=== PATIENT | female | born 1970 | race Hispanic/Latino ===

== ENCOUNTER 2018-01-17 11:46 | Emergency (ER) | payer BC, SELFPAY ==
[2018-01-17] MEDS ORDERED: Dexamethasone 4 mg/ml Vial ONE (12:27)
[2018-01-17] MEDS ORDERED: Ibuprofen 800 MG TAB ONE (12:27)
[2018-01-17] MEDS ORDERED: Ondansetron ODT 4 MG TAB ONE (12:31)
== END 2018-01-17 13:26 | disposition home or self-care (01) ==
LOC: ERS 11:46
DX: J02.9 Acute pharyngitis, unspecified (principal); J04.0 Acute laryngitis; Z86.73 Personal history of transient ischemic attack (TIA), and cerebral infarction without residual deficits
CPT/HCPCS: 87081; 87430; 99283; J1100; Q0162

== ENCOUNTER 2018-05-11 08:11 | Emergency (ER) | payer OTHER, SELFPAY ==
[2018-05-11] MEDS ORDERED: Ibuprofen 200 MG TAB ONE (08:59)
[2018-05-11] MEDS ORDERED: HYDROcodone/Acetaminophen 10/325 mg Tablet ONE (09:28)
--- NOTE | 2018-05-11 09:29 | RAD ---
2 VIEWS CHEST: Date: 05/11/18 COMPARISON: 10/15/15. HISTORY: Chest pain. FINDINGS: There are multiple stable postoperative clips in the right upper quadrant, as well as overlying bilat eral chest wall regions and right axilla. No pneumothorax, pleural fluid, focal consolidation, or joe eolar edema. IMPRESSION: Stable appearance of the chest. No focal consolidation or alveolar edema. POS: [id number]
== END 2018-05-11 09:33 | disposition home or self-care (01) ==
LOC: ERS 08:11
DX: N64.4 Mastodynia (principal); Z86.73 Personal history of transient ischemic attack (TIA), and cerebral infarction without residual deficits; Z79.899 Other long term (current) drug therapy
CPT/HCPCS: 71046

== ENCOUNTER 2019-01-04 11:05 | Emergency (ER) | payer OTHER, SELFPAY | END 2019-01-04 11:55 | disposition home or self-care (01) | LOC: ERS 11:05 | DX: M54.5 Low back pain (principal); F32.9 Major depressive disorder, single episode, unspecified; F41.9 Anxiety disorder, unspecified; Z86.73 Personal history of transient ischemic attack (TIA), and cerebral infarction without residual deficits; Z85.3 Personal history of malignant neoplasm of breast; Z79.899 Other long term (current) drug therapy | CPT/HCPCS: 99283 ==

== ENCOUNTER 2019-04-19 17:11 | Emergency (ER) | payer SELFPAY ==
[~2019-04-19 17:11] MED LIST: ISOVUE-370 76%-LOCM 1 ML ONE
[2019-04-19 17:54] LABS: #Eosinphils 0.2 thou/uL (0.0-0.7); #Lymphocytes 1.8 thou/uL (1.20-3.40); #Monocytes 0.6 thou/uL (0.11-0.59); #Neutrophils 4.6 thou/uL (1.40-6.50); %Basophils 0.6 % (0.0-1.0); %Eosinophils 2.2 % (0.0-10.0); %Lymphocytes 25.6 % (21.0-51.0); %Monocytes 8.3 % (0.0-10.0); %Neutrophils 63.3 % (42.0-75.0); Hemoglobin 13.4 g/dL (12.0-16.0); Mean Corpuscular HGB CONC 32.9 g/dL (32.0-36.0); Mean Corpuscular Hemoglobin 32.8 pg (27.0-31.0); Mean Corpuscular Volume 99.7 fL (78.0-98.0); Mean Platelet Volume 8.6 fL (7.4-10.4); Platelet Count 272 thou/uL (130-400); RBC Distribution Width 12.3 % (11.5-14.5); Red Blood Cell (RBC) Count 4.07 mill/uL (4.20-5.40); White Blood Cell (WBC) Count 7.2 thou/uL (4.8-10.8)
[2019-04-19 18:00] LABS: Bilirubin Negative (Negative); Blood, Urine Negative (Negative); Clarity CLEAR (Clear); Glucose, Urine (Dipstick) Negative (Negative); Leukocyte Negative (Negative); Nitrite Negative (Negative); Protein, Urine (Dipstick) Negative (Neg-Trace); Specific Gravity, Urine 1.007 (1.002-1.036); Urobilinogen 0.2 mg/dL (0.2-1.0)
[2019-04-19 18:14] LABS: ALT (SGPT) 10 U/L (8-55); AST (SGOT) 15 U/L (5-34); Albumin 4.3 g/dL (3.5-5.0); Alkaline Phosphatase 117 U/L (40-150); Anion Gap 10 mmol/L (10-20); BUN (Urea Nitrogen) 8 mg/dL (7.0-18.7); Bilirubin, Total 0.2 mg/dL (0.2-1.2); Calc. Creatinine Clearance 0 mL/min (70-130); Calcium 9.4 mg/dL (7.8-10.44); Carbon Dioxide 27 mmol/L (22-29); Chloride 106 mmol/L (98-107); Estimated GFR-MDRD Greater than 90; Globulin 2.9 g/dL (2.4-3.5); Glucose 93 mg/dL (70-105); Potassium 3.6 mmol/L (3.5-5.1); Protein, Total 7.2 g/dL (6.0-8.3); Sodium 139 mmol/L (136-145)
[2019-04-19] MEDS ORDERED: Ondansetron PF 4 MG/2 ML Vial ONE (18:44)
[2019-04-19] MEDS ORDERED: Pantoprazole 40 MG VIAL ONE (18:44)
[2019-04-19] MEDS ORDERED: Metoclopramide HCl 10 MG/2 ML VIAL ONE (18:44)
--- NOTE | 2019-04-19 19:13 | CT ---
CT abdomen and pelvis with IV contrast HISTORY: Abdominal pain. Nausea. COMPARISON: 12/09/2016. FINDINGS: Lung bases are clear. Right breast prosthesis partially visualized. Gallbladder surgically absent. Solid organs are intact. Nonspecific lymph nodes throughout the abdomen and pelvis. Urinary bladder is unremarkable. Postoperative changes of the bowel and anterior abdominal wall. No evidence of inflammation or obstruction. IMPRESSION: Chronic-type findings are stable. No acute abnormalities are demonstrated.
== END 2019-04-19 20:49 | disposition home or self-care (01) ==
LOC: ERS 17:11
DX: R11.2 Nausea with vomiting, unspecified (principal); F41.9 Anxiety disorder, unspecified; F32.9 Major depressive disorder, single episode, unspecified; Z86.73 Personal history of transient ischemic attack (TIA), and cerebral infarction without residual deficits; Z79.899 Other long term (current) drug therapy; Z79.1 Long term (current) use of non-steroidal anti-inflammatories (NSAID)
CPT/HCPCS: 36415; 74177; 80053; 81003; 83690; 84484; 85025; 93005; 96361; 96372; 96374; 96375; C9113; J0500; J2405; J2765; Q9966

== ENCOUNTER 2019-05-24 10:57 | Outpatient (CLI) | payer OTHER ==
--- NOTE | 2019-05-24 11:18 | RAD ---
EXAM: 2 views of the right humerus HISTORY: right arm pain COMPARISON: None FINDINGS: 2 views of the right humerus shows no evidence of acute fracture or dislocation. No degener ative changes are seen. No soft tissue swelling is present. Surgical clips are seen in the right axilla. IMPRESSION: No evidence of acute osseous abnormality.
--- NOTE | 2019-05-24 11:20 | RAD ---
LUMBAR SPINE 2 VIEWS: Date: 05/24/19 HISTORY: Back pain radiating down left leg. FINDINGS/IMPRESSION: Mild degenerative changes are seen. No fracture, subluxation, or bony destruction identified. POS: [facility]
== END 2019-05-24 10:58 | disposition home or self-care (01) ==
LOC: BICRAD 10:57
PROVIDERS: ATTEND Internal Medicine
DX: Z02.71 Encounter for disability determination (principal); M47.816 Spondylosis without myelopathy or radiculopathy, lumbar region
CPT/HCPCS: 72100

== ENCOUNTER 2021-02-24 16:55 | Emergency (ER) | payer SELFPAY ==
[2021-02-24] MEDS ORDERED: Acetaminophen 500 MG TAB ONE (17:32)
[2021-02-24] MEDS ORDERED: Ketorolac Tromethamine 30 MG/ML VIAL ONE (17:32)
== END 2021-02-24 20:13 | disposition home or self-care (01) ==
LOC: ERS 16:55
DX: R51.9 Headache, unspecified (principal); M79.10 Myalgia, unspecified site; R03.0 Elevated blood-pressure reading, without diagnosis of hypertension; R00.0 Tachycardia, unspecified; T50.B95A Adverse effect of other viral vaccines, initial encounter; Z85.3 Personal history of malignant neoplasm of breast; Z86.73 Personal history of transient ischemic attack (TIA), and cerebral infarction without residual deficits
CPT/HCPCS: 93005; 96374; J1885

== ENCOUNTER 2021-10-23 13:25 | Emergency (ER) | payer SELFPAY ==
[~2021-10-23 13:25] MED LIST changes: -ISOVUE-370 76%-LOCM 1 ML ONE; +Iopamidol-370 76% 500 ML 1 ML ONE
[2021-10-23 14:01] LABS: #Basophils 0.1 thou/uL (0.0-0.2); #Eosinphils 0.2 thou/uL (0.0-0.7); #Lymphocytes 2.3 thou/uL (1.20-3.40); #Monocytes 0.3 thou/uL (0.11-0.59); #Neutrophils 3.5 thou/uL (1.40-6.50); %Basophils 1.4 % (0.0-1.0); %Eosinophils 3.1 % (0.0-10.0); %Lymphocytes 36.1 % (21.0-51.0); %Monocytes 4.7 % (0.0-10.0); %Neutrophils 54.6 % (42.0-75.0); Hemoglobin 13.8 g/dL (12.0-16.0); Mean Corpuscular HGB CONC 34.4 g/dL (32.0-36.0); Mean Corpuscular Hemoglobin 35.3 pg (27.0-31.0); Mean Platelet Volume 8.2 fL (7.4-10.4); Platelet Count 299 thou/uL (130-400); RBC Distribution Width 11.8 % (11.5-14.5); White Blood Cell (WBC) Count 6.3 thou/uL (4.8-10.8)
[2021-10-23 14:05] LABS: Bilirubin Negative (Negative); Blood, Urine Negative (Negative); Clarity Clear (Clear); Glucose, Urine (Dipstick) Normal (Negative); Ketone, Urine Negative (Negative); Leukocyte Negative Leu/uL (Negative); Nitrite Negative (Negative); Protein, Urine (Dipstick) Negative (Neg-Trace); Specific Gravity, Urine 1.007 (1.002-1.036); Urobilinogen Normal mg/dL (Less than 2); pH, Urine 6.5 (5.0-9.0)
[2021-10-23 14:27] LABS: ALT (SGPT) 8 U/L (8-55); AST (SGOT) 16 U/L (5-34); Alkaline Phosphatase 87 U/L (40-110); Anion Gap 8 mmol/L (10-20); BUN (Urea Nitrogen) 8 mg/dL (7.0-18.7); Bilirubin, Total 0.5 mg/dL (0.2-1.2); Calc. Creatinine Clearance 0 mL/min (70-130); Calcium 9.6 mg/dL (7.8-10.44); Carbon Dioxide 28 mmol/L (22-29); Chloride 105 mmol/L (98-107); Globulin 3.1 g/dL (2.4-3.5); Glucose 101 mg/dL (70-105); Lipase 17 U/L (8-78); Potassium 3.9 mmol/L (3.5-5.1); Protein, Total 7.1 g/dL (6.0-8.3); Sodium 137 mmol/L (136-145)
[2021-10-23] MEDS ORDERED: Ondansetron PF 4 MG/2 ML Vial ONE (15:16)
[2021-10-23] MEDS ORDERED: Morphine 4 MG/ML VIAL ONE (15:16)
== END 2021-10-23 16:45 | disposition home or self-care (01) ==
LOC: ERS 13:25
DX: R10.11 Right upper quadrant pain (principal); R11.10 Vomiting, unspecified; Z86.73 Personal history of transient ischemic attack (TIA), and cerebral infarction without residual deficits; Z79.899 Other long term (current) drug therapy
CPT/HCPCS: 36415; 74177; 76705; 80053; 81003; 83690; 85025; 93005; 96374; 96375; J2270; J2405; Q9967

== ENCOUNTER 2022-01-23 09:12 | Inpatient (IN) | payer BC, SELFPAY ==
[2022-01-23 09:31] LABS: #Basophils 0.1 thou/uL (0.0-0.2); #Eosinphils 0.2 thou/uL (0.0-0.7); #Lymphocytes 2.5 thou/uL (1.20-3.40); #Monocytes 0.4 thou/uL (0.11-0.59); #Neutrophils 3.2 thou/uL (1.40-6.50); %Basophils 1.1 % (0.0-1.0); %Eosinophils 3.6 % (0.0-10.0); %Lymphocytes 39.4 % (21.0-51.0); %Monocytes 6.7 % (0.0-10.0); %Neutrophils 49.3 % (42.0-75.0); Hemoglobin 16.2 g/dL (12.0-16.0); Mean Corpuscular HGB CONC 33.4 g/dL (32.0-36.0); Mean Platelet Volume 8.3 fL (7.4-10.4); Platelet Count 292 thou/uL (130-400); RBC Distribution Width 12.2 % (11.5-14.5); Red Blood Cell (RBC) Count 4.63 mill/uL (4.20-5.40); White Blood Cell (WBC) Count 6.4 thou/uL (4.8-10.8)
[2022-01-23 09:42] LABS: ALT (SGPT) 7 U/L (8-55); AST (SGOT) 17 U/L (5-34); Acetaminophen Less than 10.0 mcg/mL (10.0-30.0); Albumin 4.6 g/dL (3.5-5.0); Alcohol Less than 10 mg/dL (Less than 10); Alkaline Phosphatase 82 U/L (40-110); Anion Gap 15 mmol/L (10-20); BUN (Urea Nitrogen) 8 mg/dL (7.0-18.7); Bilirubin, Total 0.7 mg/dL (0.2-1.2); Calc. Creatinine Clearance 0 mL/min (70-130); Carbon Dioxide 23 mmol/L (22-29); Chloride 104 mmol/L (98-107); Glucose 93 mg/dL (70-105); Magnesium 1.9 mg/dL (1.6-2.6); Potassium 4.1 mmol/L (3.5-5.1); Protein, Total 7.6 g/dL (6.0-8.3); Salicylate Less than 8.0 mg/dL (15.0-30.0); Sodium 138 mmol/L (136-145)
[2022-01-23 09:45] LABS: INR-International Normal Ratio 0.9; Prothrombin Time 12.3 sec (12.0-14.7)
[2022-01-23 09:46] LABS: PTT 29.6 sec (22.9-36.1)
[2022-01-23] MEDS ORDERED: Acetaminophen 500 MG TAB ONE (09:59)
[2022-01-23] MEDS ORDERED: Ondansetron ODT 4 MG TAB ONE (10:07)
[2022-01-23 10:34] LABS: SARS-CoV-2 NAA Rapid Test Not Detected (NotDetected)
[2022-01-23] MEDS ORDERED: Morphine 4 MG/ML VIAL ONE (10:47)
[2022-01-23] MEDS ORDERED: Labetalol HCl 100 MG/20 ML VIAL SLOW IVP PRN (12:11)
[2022-01-23] MEDS ORDERED: hydrALAZINE 20 MG/ML VIAL SLOW IVP PRN (12:11)
[2022-01-23] MEDS ORDERED: niCARdipine 25 MG in Sodium Chloride 0.9% 250 ML 250 ML IVPB PRN (12:11)
[2022-01-23 12:27] LABS: Bacteria/HPF None Seen HPF (None Seen); Bilirubin Negative (Negative); Blood, Urine Trace (Negative); Clarity Clear (Clear); Glucose, Urine (Dipstick) Normal (Negative); Ketone, Urine Negative (Negative); Leukocyte Negative Leu/uL (Negative); Nitrite Negative (Negative); Protein, Urine (Dipstick) Negative (Neg-Trace); RBC/HPF 0-3 HPF (0-3); Squamous Epithelial 0-3 HPF (0-3); Urobilinogen Normal mg/dL (Less than 2); WBC/HPF None Seen HPF (0-3)
[2022-01-23 12:35] LABS: Amphetamine Not Detected (NotDetected); Barbiturates Screen Not Detected (NotDetected); Benzodiazepine Screen Not Detected (NotDetected); Cocaine Metabolite Screen Not Detected (NotDetected); Methadone Not Detected (NotDetected); Methamphetamine Not Detected (NotDetected); Opiate Screen Detected (NotDetected); Oxycodone Screen Not Detected (NotDetected); Phencyclidine (PCP) Not Detected (NotDetected); THC/Cannabinoid Screen Detected (NotDetected); Tricyclic Screen Not Detected (NotDetected)
[2022-01-23 12:45] VITALS: BMI 20.2
[2022-01-23] MEDS: [UNRECOGNIZED DRUG - REMARK] FS SCH (13:37)
[2022-01-23] MEDS: Acetaminophen 325 MG TAB PO PRN (17:10)
[2022-01-23] MEDS: Meclizine HCl 25 MG TAB PO PRN (17:14)
[2022-01-23] MEDS: Atorvastatin Calcium 40 MG TAB PO SCH (21:28)
[2022-01-24] MEDS: Acetaminophen 325 MG TAB PO PRN ×2 (08:24→10:25)
[2022-01-24] MEDS: Meclizine HCl 25 MG TAB PO PRN (08:25)
[2022-01-24] MEDS ORDERED: Acetaminophen 325 MG TAB PO SCH (10:30)
[2022-01-24] MEDS: traMADol HCl 50 MG TAB PO PRN ×2 (11:15→17:43)
[2022-01-24] MEDS ORDERED: Pantoprazole 40 MG VIAL IVP SCH (11:15)
[2022-01-24] MEDS: [UNRECOGNIZED DRUG - REMARK] FS SCH (12:23)
[2022-01-24 14:21] LABS: #Basophils 0.1 thou/uL (0.0-0.2); #Eosinphils 0.3 thou/uL (0.0-0.7); #Lymphocytes 1.9 thou/uL (1.20-3.40); #Monocytes 0.5 thou/uL (0.11-0.59); #Neutrophils 3.4 thou/uL (1.40-6.50); %Basophils 0.9 % (0.0-1.0); %Eosinophils 5.5 % (0.0-10.0); %Lymphocytes 30.6 % (21.0-51.0); %Monocytes 8.6 % (0.0-10.0); %Neutrophils 54.3 % (42.0-75.0); Hemoglobin 14.8 g/dL (12.0-16.0); Mean Corpuscular HGB CONC 32.4 g/dL (32.0-36.0); Mean Corpuscular Hemoglobin 35.1 pg (27.0-31.0); Mean Platelet Volume 8.5 fL (7.4-10.4); Platelet Count 257 thou/uL (130-400); RBC Distribution Width 12.2 % (11.5-14.5); Red Blood Cell (RBC) Count 4.21 mill/uL (4.20-5.40); White Blood Cell (WBC) Count 6.2 thou/uL (4.8-10.8)
[2022-01-24 14:43] LABS: Anion Gap 10 mmol/L (10-20); BUN (Urea Nitrogen) 9 mg/dL (7.0-18.7); Calc. Creatinine Clearance 74 mL/min (70-130); Calcium 9.2 mg/dL (7.8-10.44); Carbon Dioxide 27 mmol/L (22-29); Chloride 105 mmol/L (98-107); Cholesterol 164 mg/dl (< 200 Desired); Glucose 100 mg/dL (70-105); HDL Cholesterol 54 mg/dL (>60 Neg Risk); LDL Cholesterol, Calculated 96 mg/dL; Potassium 4.4 mmol/L (3.5-5.1); Sodium 138 mmol/L (136-145); Triglycerides 70 mg/dL (Less than 150)
[2022-01-24] MEDS: Atorvastatin Calcium 40 MG TAB PO SCH (20:50)
[2022-01-25 05:02] LABS: #Basophils 0.1 thou/uL (0.0-0.2); #Eosinphils 0.3 thou/uL (0.0-0.7); #Lymphocytes 2.1 thou/uL (1.20-3.40); #Monocytes 0.5 thou/uL (0.11-0.59); #Neutrophils 3.5 thou/uL (1.40-6.50); %Basophils 1.1 % (0.0-1.0); %Lymphocytes 32.3 % (21.0-51.0); %Monocytes 8.1 % (0.0-10.0); %Neutrophils 53.6 % (42.0-75.0); Hemoglobin 14.4 g/dL (12.0-16.0); Mean Corpuscular Hemoglobin 33.7 pg (27.0-31.0); Mean Platelet Volume 8.4 fL (7.4-10.4); Platelet Count 276 thou/uL (130-400); RBC Distribution Width 12.1 % (11.5-14.5); Red Blood Cell (RBC) Count 4.27 mill/uL (4.20-5.40); White Blood Cell (WBC) Count 6.6 thou/uL (4.8-10.8)
[2022-01-25 05:24] LABS: Anion Gap 10 mmol/L (10-20); BUN (Urea Nitrogen) 12 mg/dL (7.0-18.7); Calc. Creatinine Clearance 76 mL/min (70-130); Calcium 9.2 mg/dL (7.8-10.44); Carbon Dioxide 28 mmol/L (22-29); Chloride 103 mmol/L (98-107); Glucose 94 mg/dL (70-105); Potassium 4.2 mmol/L (3.5-5.1); Sodium 137 mmol/L (136-145)
[2022-01-25] MEDS ORDERED: Carvedilol 3.125 MG TAB PO SCH ×2 (08:34→09:00)
[2022-01-25] MEDS ORDERED: Enoxaparin Sodium 40 MG/0.4 ML SYRINGE SC SCH (09:00)
[2022-01-25] MEDS ORDERED: Aspirin 325 mg Enteric Coated Tablet PO SCH (09:00)
[2022-01-25] MEDS: Aspirin 81 mg Enteric Coated Tablet PO SCH (09:11)
[2022-01-25] MEDS: [UNRECOGNIZED DRUG - REMARK] FS SCH (13:31)
[2022-01-25] MEDS: Meclizine HCl 25 MG TAB PO PRN (13:34)
[2022-01-25] MEDS ORDERED: Nitroglycerin 0.4 MG TAB (25 Tab Bottle) SL PRN (15:40)
[2022-01-25] MEDS: Ondansetron PF 4 MG/2 ML Vial IVP PRN (16:29)
[2022-01-25] MEDS: Acetaminophen 325 MG TAB PO PRN ×2 (16:35→22:05)
[2022-01-25 16:37] LABS: #Basophils 0.1 thou/uL (0.0-0.2); #Eosinphils 0.3 thou/uL (0.0-0.7); #Lymphocytes 2.4 thou/uL (1.20-3.40); #Monocytes 0.5 thou/uL (0.11-0.59); #Neutrophils 3.3 thou/uL (1.40-6.50); %Basophils 0.8 % (0.0-1.0); %Eosinophils 4.3 % (0.0-10.0); %Lymphocytes 37.2 % (21.0-51.0); %Monocytes 7.2 % (0.0-10.0); %Neutrophils 50.5 % (42.0-75.0); Hemoglobin 14.6 g/dL (12.0-16.0); Mean Corpuscular HGB CONC 32.3 g/dL (32.0-36.0); Mean Corpuscular Hemoglobin 33.8 pg (27.0-31.0); Mean Platelet Volume 8.1 fL (7.4-10.4); Platelet Count 313 thou/uL (130-400); RBC Distribution Width 12.1 % (11.5-14.5); Red Blood Cell (RBC) Count 4.33 mill/uL (4.20-5.40); White Blood Cell (WBC) Count 6.5 thou/uL (4.8-10.8)
[2022-01-25] MEDS: Carvedilol 3.125 MG TAB PO SCH (16:50)
[2022-01-25 17:03] LABS: ALT (SGPT) 8 U/L (8-55); AST (SGOT) 16 U/L (5-34); Albumin 4.2 g/dL (3.5-5.0); Alkaline Phosphatase 79 U/L (40-110); Anion Gap 14 mmol/L (10-20); BUN (Urea Nitrogen) 12 mg/dL (7.0-18.7); Bilirubin, Total 0.4 mg/dL (0.2-1.2); Calc. Creatinine Clearance 80 mL/min (70-130); Calcium 9.4 mg/dL (7.8-10.44); Carbon Dioxide 24 mmol/L (22-29); Chloride 103 mmol/L (98-107); Globulin 3.1 g/dL (2.4-3.5); Glucose 98 mg/dL (70-105); Potassium 4.1 mmol/L (3.5-5.1); Protein, Total 7.3 g/dL (6.0-8.3); Sodium 137 mmol/L (136-145)
[2022-01-25 17:04] LABS: Troponin I Less than 0.010 ng/mL (< 0.028)
[2022-01-25] MEDS: Morphine 4 MG/ML VIAL SLOW IVP PRN (17:21)
[2022-01-25 19:34] LABS: Troponin I Less than 0.010 ng/mL (< 0.028)
[2022-01-25] MEDS: Atorvastatin Calcium 40 MG TAB PO SCH (20:50)
[2022-01-25 22:28] LABS: Troponin I Less than 0.010 ng/mL (< 0.028)
[2022-01-26] MEDS: Thiamine 100 MG TAB PO SCH (09:07)
[2022-01-26] MEDS: Cyanocobalamin (Vitamin B-12) 1,000 MCG TAB PO SCH (09:07)
[2022-01-26] MEDS: Carvedilol 3.125 MG TAB PO SCH ×2 (09:07→16:37)
[2022-01-26] MEDS: Aspirin 81 mg Enteric Coated Tablet PO SCH (09:07)
[2022-01-26] MEDS: Folic Acid 1 MG TAB PO SCH (09:07)
[2022-01-26] MEDS: Ondansetron PF 4 MG/2 ML Vial IVP PRN (13:09)
[2022-01-26] MEDS: Morphine 4 MG/ML VIAL SLOW IVP PRN ×2 (13:17→20:26)
[2022-01-26] MEDS: Melatonin 3 MG TAB PO PRN (20:30)
[2022-01-26] MEDS: Atorvastatin Calcium 40 MG TAB PO SCH (20:30)
[2022-01-27] MEDS: Folic Acid 1 MG TAB PO SCH (09:20)
[2022-01-27] MEDS: Aspirin 81 mg Enteric Coated Tablet PO SCH (09:20)
[2022-01-27] MEDS: Cyanocobalamin (Vitamin B-12) 1,000 MCG TAB PO SCH (09:20)
[2022-01-27] MEDS: Thiamine 100 MG TAB PO SCH (09:20)
[2022-01-27] MEDS: Carvedilol 3.125 MG TAB PO SCH ×2 (09:20→18:01)
[2022-01-27] MEDS ORDERED: Ondansetron ODT 8 MG TAB SL PRN (11:42)
[2022-01-27] MEDS ORDERED: Topiramate 25 MG TAB PO SCH (21:00)
[2022-01-27] MEDS: Atorvastatin Calcium 40 MG TAB PO SCH (21:10)
[2022-01-28] MEDS: Melatonin 3 MG TAB PO PRN (00:35)
[2022-01-28] MEDS: Carvedilol 3.125 MG TAB PO SCH (09:08)
[2022-01-28] MEDS: Cyanocobalamin (Vitamin B-12) 1,000 MCG TAB PO SCH (09:08)
[2022-01-28] MEDS: Folic Acid 1 MG TAB PO SCH (09:08)
[2022-01-28] MEDS: Aspirin 81 mg Enteric Coated Tablet PO SCH (09:09)
[2022-01-28] MEDS: Thiamine 100 MG TAB PO SCH (09:09)
[2022-01-28 16:25] VITALS: BP 109/67; TEMP 98
== END 2022-01-28 17:40 | disposition home or self-care (01) | DRG 62 ==
LOC: ERS 09:12 → ERHOLD 10:58 → CCU 12:17 → NEURO 01-24 15:43
PROVIDERS: ADMIT Internal Medicine; ATTEND Internal Medicine
DX: G45.9 Transient cerebral ischemic attack, unspecified (principal); I42.7 Cardiomyopathy due to drug and external agent; G43.409 Hemiplegic migraine, not intractable, without status migrainosus; Z20.822 Contact with and (suspected) exposure to COVID-19; F41.9 Anxiety disorder, unspecified; F10.10 Alcohol abuse, uncomplicated; T45.1X5S Adverse effect of antineoplastic and immunosuppressive drugs, sequela; Z88.1 Allergy status to other antibiotic agents; Z86.73 Personal history of transient ischemic attack (TIA), and cerebral infarction without residual deficits; Z88.3 Allergy status to other anti-infective agents; Z88.8 Allergy status to other drugs, medicaments and biological substances; Z79.899 Other long term (current) drug therapy; Z90.710 Acquired absence of both cervix and uterus; Z90.49 Acquired absence of other specified parts of digestive tract; Z90.10 Acquired absence of unspecified breast and nipple; Z98.51 Tubal ligation status; Z82.3 Family history of stroke; Z82.0 Family history of epilepsy and other diseases of the nervous system; Z90.721 Acquired absence of ovaries, unilateral; Z85.3 Personal history of malignant neoplasm of breast; Z92.21 Personal history of antineoplastic chemotherapy; Z92.3 Personal history of irradiation
CPT/HCPCS: 36415; 36416; 37195; 70450; 70496; 70498; 70551; 71045; 80048; 80053; 80061; 80306; 80307; 81003; 81015; 82607; 82746; 83735; 84443; 84484; 85025; 85610; 85730; 93005; 93010; 93306; 94760; 95712; 95819; 95957; 96374; C9113; J1650; J2270; J2405; J2997; Q0162; U0002